=== PATIENT | male | born 1995 | race Caucasian/White ===

== ENCOUNTER → 2018-10-25 | Outpatient (CLI) | payer OTHER, MEDICAID | LOC: EDSEX 10:00 → COL.CARD 10:00 | DX: R56.9 Unspecified convulsions (principal); F84.0 Autistic disorder ==

== ENCOUNTER 2019-01-11 09:00 | Outpatient (RCR) | payer OTHER, MEDICAID | END 2019-01-21 | disposition home or self-care (01) | LOC: MKS.ESL.OT | DX: F84.0 Autistic disorder (principal) ==

== ENCOUNTER 2019-04-05 09:00 | Outpatient (RCR) | payer OTHER, MEDICAID | END 2019-04-25 | disposition home or self-care (01) | LOC: MKS.ESL.OT | DX: F84.0 Autistic disorder (principal) ==